=== PATIENT | female | born 1985 | race Two or more races ===

== ENCOUNTER 2025-02-11 08:00 | Inpatient (IN) | payer OTHER ==
[~2025-02-11] VITALS: Ht 165.1 cm; Wt 112.5 kg
[2025-02-11 09:30] VITALS: BP 114/72
[2025-02-11 09:43] VITALS: BP 114/78
[2025-02-11 10:07] LABS: URINE APPEARANCE Clear; URINE BILIRRUBIN Negative (NEGATIVE); URINE BLOOD NHT; URINE COLOR Yellow; URINE GLUCOSE Negative (NEGATIVE); URINE KETONE Negative (NEGATIVE); URINE LEUKOCYTE Negative; URINE NITRATE Negative; URINE PROTEIN Negative (NEGATIVE); URINE UROBILINOGEN 0.2 E.U./dl
[2025-02-11 10:10] LABS: BASO % 0.6 % (0.1-1.2); EOS # 0.20 (0.04-0.54); EOS % 3.7 % (0.7-7.0); LYMPH # 1.92 (1.18-3.74); LYMPH % 35.5 % (19.3-53.1); MONO # 0.47 (0.24-0.82); MONO % 8.7 % (4.7-12.5); NEUT # 2.78 (1.56-6.13); NEUT % 51.3 % (34.0-71.1); RED CELL DISTRIBUTION WIDTH 16.5 % (11.6-14.4)
[2025-02-11 10:11] LABS: URINE EPITHELIAL CELLS 35.1 uL (0.0-38.8); URINE RBC 6.6 uL (0.0-20.8); URINE WBC 67.4 uL (0.0-23.2)
[2025-02-11 10:24] LABS: URINE CAST 0.42 uL (0.0-1.40)
[2025-02-11 10:35] LABS: INR 1.06
[2025-02-11 11:07] LABS: ALT/SGPT 31.0 U/L (12-78); AST/SGOT 17.0 U/L (15-37); BILIRUBIN TOTAL 0.37 mg/dL (0.3-1.2); BUN CREA RATIO 15.0 (7.0-25.0); CREATININE SERUM 0.81 mg/dL (0.55-1.02); GFR 79.13; GLOBULINA 4.2 G/DL (2.4-3.5); GLUCOSE FASTING 86.0 mg/dL (65-100); OSMOLALITY SERUM 282.0 MOSM/KG (275-295)
[2025-02-19] MEDS ORDERED: METRONIDAZOLE/SODIUM CHLORIDE 500 MG/100 ML PIGGYBACK IV ONE (07:05)
[2025-02-19] MEDS ORDERED: CEFAZOLIN SODIUM 1,000 MG VIAL ONE ×2 (10:58→17:02)
[2025-02-19] MEDS ORDERED: POVIDONE-IODINE 118 ML BOTT TOP ONE (11:15)
[2025-02-19] MEDS ORDERED: THROMBIN,HU/FIBRINOGEN/CALCIUM 10 ML SYRINGE TOP ONE (11:38)
[2025-02-19] MEDS ORDERED: SUGAMMADEX SODIUM 200 MG/2 ML VIAL IV ONE (12:00)
[2025-02-19] MEDS ORDERED: MORPHINE SULFATE 4 MG/ML VIAL IV PRN (12:45)
[2025-02-19] MEDS ORDERED: RINGERS SOLUTION,LACTATED 1,000 ML IV SCH (12:45)
[2025-02-19] MEDS ORDERED: OxyCODONE HCL 5 MG TABLET (ROXICODONE) PO PRN (12:45)
[2025-02-19] MEDS ORDERED: ONDANSETRON HCL 2 MG/ML VIAL IV PRN (12:45)
[2025-02-19] MEDS ORDERED: KETOROLAC TROMETHAMINE 30 MG VIAL IV SCH (13:00)
[2025-02-19] MEDS ORDERED: KETOROLAC TROMETHAMINE 30 MG VIAL ONE (13:27)
[2025-02-19 16:49] LABS: BASO % 0.3 % (0.1-1.2); EOS # 0.01 (0.04-0.54); EOS % 0.1 % (0.7-7.0); LYMPH # 1.17 (1.18-3.74); LYMPH % 9.0 % (19.3-53.1); MONO # 0.85 (0.24-0.82); MONO % 6.5 % (4.7-12.5); NEUT # 10.95 (1.56-6.13); NEUT % 83.8 % (34.0-71.1); RED CELL DISTRIBUTION WIDTH 16.6 % (11.6-14.4)
[2025-02-19] MEDS ORDERED: CEFAZOLIN SODIUM 1,000 MG VIAL IV SCH (17:00)
[2025-02-19] MEDS ORDERED: DOCUSATE SODIUM 100MG CAP PO SCH (17:00)
[2025-02-19 19:00] VITALS: BP 114/72
[2025-02-19] MEDS ORDERED: FAMOTIDINE/PF 20 MG/2 ML VIAL IV SCH (21:00)
[2025-02-20 01:22] VITALS: BP 132/80
[2025-02-20] MEDS ORDERED: SIMETHICONE 125 MG CAPSULE PO SCH (09:00)
[2025-02-20 09:03] VITALS: BP 103/66
[2025-02-20 11:55] LABS: BASO % 0.3 % (0.1-1.2); EOS # 0.07 (0.04-0.54); EOS % 0.9 % (0.7-7.0); LYMPH # 1.89 (1.18-3.74); LYMPH % 24.3 % (19.3-53.1); MONO # 0.72 (0.24-0.82); MONO % 9.3 % (4.7-12.5); NEUT # 5.06 (1.56-6.13); NEUT % 64.9 % (34.0-71.1); RED CELL DISTRIBUTION WIDTH 16.3 % (11.6-14.4)
[2025-02-20 18:39] VITALS: BP 127/82
[2025-02-21] VITALS: BP 108/66
[2025-02-21 08:14] VITALS: BP 121/80
[2025-02-21 16:33] VITALS: BP 110/75
== END 2025-02-21 16:51 | disposition home or self-care (01) | DRG 743 ==
LOC: OB/GYN 02-19 05:35 → O/R 02-19 05:35 → SURH 02-19 07:00 → OB/GYN 02-19 13:49
PROVIDERS: ADMIT General Practice; ATTEND General Practice
PROC: 0UT70ZZ Resection of Bilateral Fallopian Tubes, Open Approach (ICD-10-PCS; 2025-02-19)
PROC: 0UT90ZZ Resection of Uterus, Open Approach (ICD-10-PCS; principal; 2025-02-19 07:00)
DX: D25.1 Intramural leiomyoma of uterus (principal); N93.9 Abnormal uterine and vaginal bleeding, unspecified; R10.20 Pelvic and perineal pain unspecified side